=== PATIENT | male | born 1945 | race Caucasian/White ===

== ENCOUNTER 2019-08-29 00:33 | Emergency (ER) | payer SELFPAY ==
[~2019-08-29] VITALS: Ht 162.6 cm; Wt 72.6 kg
[2019-08-29 00:44] VITALS: BP 167/113
--- NOTE | 2019-08-29 00:50 | NUR ---
TRIAGE COMPLETE. TO LOBBY AWAITING BED IN ED.
--- NOTE | 2019-08-29 02:00 | NUR ---
CALLED FOR BED, NO RESPONSE.
--- NOTE | 2019-08-29 02:10 | NUR ---
CALLED FOR BED, NO RESPONSE.
--- NOTE | 2019-08-29 02:30 | NUR ---
CALLED FOR BED, NO RESPONSE.
--- NOTE | 2019-08-29 03:00 | NUR ---
PATIENT LEFT WITHOUT BEING SEEN BY DR. BILLINGSLEY. NO FURTHER CARE PROVIDED FOR PATIENT.
== END 2019-08-29 01:03 | disposition left against medical advice (07) ==
LOC: MED 00:33
DX: F10.129 Alcohol abuse with intoxication, unspecified (principal); Z53.21 Procedure and treatment not carried out due to patient leaving prior to being seen by health care provider; Y90.9 Presence of alcohol in blood, level not specified